=== PATIENT | male | born 1985 | race Caucasian/White ===

== ENCOUNTER 2022-07-27 13:22 | Emergency (ER) | payer BC, OTHER ==
[2022-07-27 13:55] VITALS: BP 125/75; PULSE 92
== END 2022-07-27 16:40 | disposition home or self-care (01) ==
LOC: JD.ED 13:22
DX: L03.116 Cellulitis of left lower limb (principal); M70.42 Prepatellar bursitis, left knee; Z79.899 Other long term (current) drug therapy
CPT/HCPCS: 36415; 73564-26-LT; 73564-LT; 80053; 85025; 85652; 86140; 99283